=== PATIENT | female | born 1995 | race Two or more races ===

== ENCOUNTER 2024-05-16 09:11 | Outpatient (CLI) | payer OTHER | END 2024-05-16 09:12 | disposition home or self-care (01) | LOC: PRENATAL 09:11 | PROVIDERS: ATTEND Obstetrics & Gynecology Maternal & Fetal Medicine | DX: O36.80X0 Pregnancy with inconclusive fetal viability, not applicable or unspecified (principal); Z36.82 Encounter for antenatal screening for nuchal translucency; Z36.9 Encounter for antenatal screening, unspecified; Z14.8 Genetic carrier of other disease; Z3A.12 12 weeks gestation of pregnancy ==

== ENCOUNTER 2024-07-10 08:21 | Outpatient (CLI) | payer OTHER | END 2024-07-10 08:22 | disposition home or self-care (01) | LOC: PRENATAL 08:21 | PROVIDERS: ATTEND Obstetrics & Gynecology Maternal & Fetal Medicine | DX: O35.3XX0 Maternal care for (suspected) damage to fetus from viral disease in mother, not applicable or unspecified (principal); O44.00 Complete placenta previa NOS or without hemorrhage, unspecified trimester; Z14.8 Genetic carrier of other disease; O99.210 Obesity complicating pregnancy, unspecified trimester; O24.419 Gestational diabetes mellitus in pregnancy, unspecified control; Z3A.20 20 weeks gestation of pregnancy ==

== ENCOUNTER 2024-09-04 09:28 | Outpatient (CLI) | payer OTHER | END 2024-09-04 09:31 | disposition home or self-care (01) | LOC: PRENATAL 09:28 | PROVIDERS: ATTEND Obstetrics & Gynecology Maternal & Fetal Medicine | DX: O26.843 Uterine size-date discrepancy, third trimester (principal); O99.213 Obesity complicating pregnancy, third trimester; O24.419 Gestational diabetes mellitus in pregnancy, unspecified control ==

== ENCOUNTER → 2024-10-03 08:46 | Outpatient (CLI) | payer OTHER | END | disposition home or self-care (01) | LOC: PRENATAL 08:46 | PROVIDERS: ATTEND Obstetrics & Gynecology Maternal & Fetal Medicine | DX: O26.849 Uterine size-date discrepancy, unspecified trimester (principal); O36.8199 Decreased fetal movements, unspecified trimester, other fetus; O99.210 Obesity complicating pregnancy, unspecified trimester; O24.419 Gestational diabetes mellitus in pregnancy, unspecified control; Z3A.32 32 weeks gestation of pregnancy ==

== ENCOUNTER 2024-11-08 15:55 | Outpatient (CLI) | payer OTHER ==
[2024-11-08 16:24] VITALS: BP 120/79
[2024-11-08 16:49] LABS: HEMATOCRIT 39.8 % (36.0-45.00); HEMOGLOBIN 13.5 g/dL (12.0-15.00); MEAN CELL VOLUME 92.6 fL (80.00-100.00); MEAN CORPUSCULAR HEMOGLOBIN 31.5 pg (27.00-32.0); RED CELL DISTRIBUTION WIDTH 13.3 % (11.5-14.5)
[2024-11-08 16:50] LABS: URINE APPEARANCE Clear; URINE BACTERIA 907.9 uL (0.0-1933); URINE BILIRRUBIN Negative (NEGATIVE); URINE BLOOD Negative; URINE COLOR Yellow; URINE EPITHELIAL CELLS 13.4 uL (0.0-38.8); URINE GLUCOSE Negative (NEGATIVE); URINE KETONE 15 (NEGATIVE); URINE LEUKOCYTE Negative; URINE NITRATE Negative; URINE PROTEIN Negative (NEGATIVE); URINE UROBILINOGEN 0.2 E.U./dl; URINE WBC 12.3 uL (0.0-23.2)
[2024-11-08 17:03] LABS: PLATELET COUNT 129 K/uL (150-450)
[2024-11-08 17:13] LABS: INR 0.97; PARTIAL THROMBOPLASTIN TIME 28.1 SECONDS (22.0-34.0); PROTHROMBIN TIME 10.6 SECONDS (9.0-11.5)
[2024-11-08 17:25] LABS: ALBUMIN 2.8 gm/dL (3.4-5.0); BILIRUBIN TOTAL 0.55 mg/dL (0.3-1.2); CALCIUM 9.2 mg/dL (8.5-10.1); CREATININE SERUM 0.64 mg/dL (0.55-1.02); GFR 111.31; GLOBULINA 4.5 G/DL (2.4-3.5); POTASSIUM 4.22 mEq/L (3.5-5.1); TOTAL PROTEIN 7.3 gm/dL (6.4-8.2)
[2024-11-08 19:53] VITALS: BP 106/69
[2024-11-08] MEDS ORDERED: METFORMIN HCL1000 M3 (21:20)
[2024-11-08] MEDS ORDERED: PRENATAL TABLE1 EAC1 (21:21)
[2024-11-08] MEDS ORDERED: CHILDREN'S ASPI81 MG (21:21)
[2024-11-08] MEDS ORDERED: SODIUM CHLORIDE 0.45 % 1,000 ML IV SCH (21:30)
[2024-11-08 23:51] VITALS: BP 109/74
[2024-11-09 04:23] VITALS: BP 102/67
[2024-11-09 06:23] VITALS: BP 107/71; O2SAT 100
[2024-11-09 11:44] VITALS: BP 111/75
[2024-11-09 14:43] VITALS: BP 103/68
== END 2024-11-09 12:41 | disposition home or self-care (01) ==
LOC: OBS/DEL 15:55
PROVIDERS: ATTEND Obstetrics & Gynecology
DX: O26.849 Uterine size-date discrepancy, unspecified trimester (principal); O36.8199 Decreased fetal movements, unspecified trimester, other fetus; O99.210 Obesity complicating pregnancy, unspecified trimester; O24.419 Gestational diabetes mellitus in pregnancy, unspecified control; O41.00X0 Oligohydramnios, unspecified trimester, not applicable or unspecified; Z3A.37 37 weeks gestation of pregnancy

== ENCOUNTER 2024-11-13 13:35 | Inpatient (IN) | payer OTHER ==
[~2024-11-13] VITALS: Ht 162.6 cm; Wt 3.2 kg
[~2024-11-13 13:35] MED LIST: CHILDREN'S ASPI81 MG; METFORMIN HCL1000 M3; PRENATAL TABLE1 EAC1
[2024-11-13] MEDS ORDERED: MISOPROSTOL 25 MCG TABLET VAG ONE (15:30)
[2024-11-13 15:40] VITALS: BP 110/70
[2024-11-13] MEDS ORDERED: RINGERS SOLUTION,LACTATED 1,000 ML IV SCH (16:15)
[2024-11-13 17:32] LABS: URINE APPEARANCE Clear; URINE BILIRRUBIN Negative (NEGATIVE); URINE BLOOD Negative; URINE COLOR Yellow; URINE GLUCOSE Negative (NEGATIVE); URINE KETONE Negative (NEGATIVE); URINE LEUKOCYTE Negative; URINE NITRATE Negative; URINE PROTEIN Negative (NEGATIVE); URINE UROBILINOGEN 0.2 E.U./dl
[2024-11-13 17:33] LABS: URINE BACTERIA 215.2 uL (0.0-1933); URINE WBC 3.4 uL (0.0-23.2)
[2024-11-13 17:41] LABS: URINE CAST 0.14 uL (0.0-1.40); URINE RBC 1.1 uL (0.0-20.8)
[2024-11-13 17:50] LABS: HEMATOCRIT 39.3 % (36.0-45.00); HEMOGLOBIN 13.4 g/dL (12.0-15.00); MEAN CORPUSCULAR HEMOGLOBIN 31.8 pg (27.00-32.0); MEAN CORPUSCULAR HGB CONC 34.2 g/dl (32.0-36.0); RED BLOOD COUNT 4.23 M/uL (4.00-6.00); RED CELL DISTRIBUTION WIDTH 13.9 % (11.5-14.5)
[2024-11-13 17:53] LABS: PLATELET COUNT 115 K/uL (150-450)
[2024-11-13 18:08] LABS: INR 0.95; PARTIAL THROMBOPLASTIN TIME 27.4 SECONDS (22.0-34.0); PROTHROMBIN TIME 10.4 SECONDS (9.0-11.5)
[2024-11-13 18:12] LABS: ALBUMIN 2.8 gm/dL (3.4-5.0); BILIRUBIN TOTAL 0.44 mg/dL (0.3-1.2); CALCIUM 8.9 mg/dL (8.5-10.1); CREATININE SERUM 0.66 mg/dL (0.55-1.02); GFR 107.43; POTASSIUM 4.9 mEq/L (3.5-5.1); TOTAL PROTEIN 6.8 gm/dL (6.4-8.2)
[2024-11-13 19:24] VITALS: BP 125/79
[2024-11-13 23:11] VITALS: BP 121/74
[2024-11-14 03:03] VITALS: BP 130/83
[2024-11-14] MEDS ORDERED: MISOPROSTOL 25 MCG/4 ML GEL.W.APPL VAG ONE (03:15)
[2024-11-14 07:40] VITALS: BP 124/77
[2024-11-14] MEDS ORDERED: OXYTOCIN 500 ML IV SCH (09:30)
[2024-11-14 11:10] VITALS: BP 122/80
[2024-11-14] MEDS ORDERED: MORPHINE SULFATE 4 MG/ML VIAL IV ONE ×3 (13:15→21:15)
[2024-11-14 15:11] VITALS: BP 120/71
[2024-11-14] MEDS ORDERED: OXYTOCIN 10 UNITS/ML VIAL ONE ×2 (16:43→21:10)
[2024-11-14] MEDS ORDERED: ERYTHROMYCIN BASE OPHT 1GM EACH TUBE OP ONE (16:44)
[2024-11-14] MEDS ORDERED: CEFAZOLIN SODIUM 1,000 MG VIAL IV ONE (17:00)
[2024-11-14] MEDS ORDERED: VISTASEAL DUAL APPICATOR 1 EACH APPL TOP ONE (18:02)
[2024-11-14] MEDS ORDERED: THROMBIN,HU/FIBRINOGEN/CALCIUM 10 ML SYRINGE TOP ONE (18:02)
[2024-11-14] MEDS ORDERED: ONDANSETRON HCL 2 MG/ML VIAL IV PRN (19:00)
[2024-11-14] MEDS ORDERED: OXYTOCIN 1,000 ML IV SCH (19:00)
[2024-11-14] MEDS ORDERED: MORPHINE SULFATE 4 MG/ML CARTRIDGE IV PRN (19:00)
[2024-11-14] MEDS ORDERED: RINGERS SOLUTION,LACTATED 1,000 ML IV SCH (19:00)
[2024-11-14] MEDS ORDERED: KETOROLAC TROMETHAMINE 30 MG VIAL IV NR (19:00)
[2024-11-14] MEDS ORDERED: SIMETHICONE 125 MG CAPSULE PO SCH (21:00)
[2024-11-14 21:44] VITALS: BP 118/77
[2024-11-15] VITALS: BP 121/79
[2024-11-15] MEDS ORDERED: KETOROLAC TROMETHAMINE 30 MG VIAL IV SCH
[2024-11-15] MEDS ORDERED: ACETAMINOPHEN 325 MG TABLET PO SCH
[2024-11-15] MEDS ORDERED: OxyCODONE HCL 5 MG TABLET (ROXICODONE) PO PRN (06:00)
[2024-11-15 06:32] LABS: HEMATOCRIT 34.8 % (36.0-45.00); MEAN CELL VOLUME 92.2 fL (80.00-100.00); MEAN CORPUSCULAR HEMOGLOBIN 31.8 pg (27.00-32.0); MEAN CORPUSCULAR HGB CONC 34.5 g/dl (32.0-36.0); RED BLOOD COUNT 3.77 M/uL (4.00-6.00); RED CELL DISTRIBUTION WIDTH 13.1 % (11.5-14.5)
[2024-11-15 06:50] LABS: PLATELET COUNT 114 K/uL (150-450)
[2024-11-15 08:35] VITALS: BP 109/69
[2024-11-15] MEDS ORDERED: PNV,CALCIUM 72/IRON/FOLIC ACID 1 TAB TABLET PO SCH (09:00)
[2024-11-15] MEDS ORDERED: CHLORHEXIDINE GLUCONATE 120 ML BOTTLE TOP SCH ×2 (09:00→09:38)
[2024-11-15] MEDS ORDERED: IBUprofen 400 MG TABLET PO PRN (09:00)
[2024-11-15 16:24] VITALS: BP 110/76
[2024-11-16 00:37] VITALS: BP 119/82
[2024-11-16 08:15] VITALS: BP 117/75
== END 2024-11-16 13:43 | disposition home or self-care (01) | DRG 788 ==
LOC: LDR 13:35 → O/R 11-14 17:42 → OB/GYN 11-14 20:38
PROVIDERS: Obstetrics & Gynecology; ADMIT Obstetrics & Gynecology; ATTEND Obstetrics & Gynecology
PROC: 3E0P7VZ Introduction of Hormone into Female Reproductive, Via Natural or Artificial Opening (ICD-10-PCS; 2024-11-13)
PROC: 4A1HXCZ Monitoring of Products of Conception, Cardiac Rate, External Approach (ICD-10-PCS; 2024-11-13)
PROC: 3E033VJ Introduction of Other Hormone into Peripheral Vein, Percutaneous Approach (ICD-10-PCS; 2024-11-14)
PROC: 10D00Z1 Extraction of Products of Conception, Low, Open Approach (ICD-10-PCS; principal; 2024-11-14 20:30)
DX: O41.03X0 Oligohydramnios, third trimester, not applicable or unspecified (principal); Z3A.38 38 weeks gestation of pregnancy; Z37.0 Single live birth